=== PATIENT | female | born 1990 | race Caucasian/White ===

== ENCOUNTER 2023-10-31 15:21 | Emergency (ER) | payer MEDICAID ==
[~2023-10-31] VITALS: Ht 162.6 cm; Wt 81.6 kg
[2023-10-31 15:31] VITALS: BP_SYST 104; PULSE 78; RESP 18; TEMP 98.5; O2SAT 98
[2023-10-31] MEDS ORDERED: AMOX-423 PO (16:13)
[2023-10-31] MEDS: DIPHTH,PERTUSS(ACELL),TET VAC 0.5 ML VIAL (Tdap) I.M. ONE (16:40)
[2023-10-31 16:43] VITALS: BP_SYST 104; PULSE 78; RESP 18; TEMP 98.5; O2SAT 98
== END 2023-10-31 16:43 | disposition home or self-care (01) ==
LOC: SED 15:21
DX: S41.131A Puncture wound without foreign body of right upper arm, initial encounter (principal); Z23 Encounter for immunization; Z79.2 Long term (current) use of antibiotics; W54.0XXA Bitten by dog, initial encounter; Y93.89 Activity, other specified; Y92.89 Other specified places as the place of occurrence of the external cause; Y99.8 Other external cause status
CPT/HCPCS: 90715; 99283